=== PATIENT | male | born 1960 | race Caucasian/White ===

== ENCOUNTER 2016-12-15 15:57 | Inpatient (IN) | payer SELFPAY ==
[~2016-12-15] VITALS: Ht 165.1 cm; Wt 77.1 kg
[2016-12-15] MEDS ORDERED: SODIUM CHLORIDE 0.9% 1,000 ML IV ONE (16:47)
[2016-12-15 17:10] LABS: HEMATOCRIT. 41.3 % (42.0-52.0); HEMOGLOBIN. 13.3 g/dL (14.0-18.0); MEAN CORPUSCULAR HEMOGLOBIN 27.7 pg (28.0-32.0); MEAN CORPUSCULAR HGB CONC 32.1 g/dL (31.0-37.0); MEAN CORPUSCULAR VOLUME 86.2 fL (80.0-94.0); MEAN PLATELET VOLUME 9.8 fl (7.4-10.4); PLATELET 251 x1000/uL (130-400); RED BLOOD CELL COUNT 4.79 mill/uL (4.7-6.1); RED CELL DISTRIBUTION WIDTH 14.2 % (11.6-14.6); WHITE BLOOD COUNT 39.5 x1000/uL (4.5-11.0)
[2016-12-15 17:11] LABS: DIFFERENTIAL COMMENT 1
[2016-12-15 17:16] LABS: INR 1.1; PROTHROMBIN TIME 10.9 sec
[2016-12-15 17:23] LABS: ALANINE AMINOTRANSFERASE 52 IU/L (13-61); ALBUMIN 2.6 g/dL (3.4-5.0); ANION GAP 36; CALCIUM 9.3 mg/dL (8.5-10.1); CHLORIDE 89 mEq/L (98-107); INDEX HEMOLYSI 1 (1-3); INDEX ICTERIC 1 (1-4); INDEX LIPEMIC 1 (1-3); UREA NITROGEN BLOOD 30 mg/dL (7-21); eGFR > 60 mL/min (>60)
[2016-12-15 17:28] LABS: PLATELET ESTIMATE NORMAL
[2016-12-15 17:31] LABS: CARBON DIOXIDE 8 mEq/L (21-32)
[2016-12-15] MEDS ORDERED: CLONIDINE 0.1MG TABLET PO PRN (17:45)
[2016-12-15] MEDS ORDERED: DOCUSATE SODIUM 100MG CAPSULE PO PRN (17:45)
[2016-12-15] MEDS ORDERED: ACETAMINOPHEN 650MG SUPP PR PRN (17:45)
[2016-12-15] MEDS ORDERED: PIPERACILLIN SODIUM/TAZOBACTAM 4.5 G in DEXT 5% WATER 100 ML IV SCH ×2 (17:45→18:30)
[2016-12-15] MEDS ORDERED: INSULIN REGULAR (DRIP) 100 UNITS in SODIUM CHLORIDE 0.9% 100 ML IV ONE ×2 (17:45→18:15)
[2016-12-15] MEDS ORDERED: MAGNESIUM/ALUMINUM HYDROXIDE/SIMETHICONE 30ML UDC PO PRN (17:45)
[2016-12-15 17:53] LABS: CLARITY URINE CLEAR (CLEAR); COLOR URINE YELLOW (YELLOW); GLUCOSE URINE 3+ (NEGATIVE); KETONES URINE 4+ (NEGATIVE); LEUKOCYTE ESTERASE URINE NEGATIVE (NEGATIVE); NITRITE URINE NEGATIVE (NEGATIVE); OCCULT BLOOD URINE 2+ (NEGATIVE); PROTEIN URINE TRACE (NEGATIVE); UROBILINOGEN URINE 0.2 E.U./dL (0.2-1.0)
[2016-12-15 18:06] LABS: *AMPHETAMINES SCREEN URINE NEGATIVE (NEGATIVE); *BARBITURATES SCREEN URINE NEGATIVE (NEGATIVE); *BENZODIAZEPINES SCREEN URINE NEGATIVE (NEGATIVE); *COCAINE SCREEN URINE NEGATIVE (NEGATIVE); CANNABINOID URINE SCREEN NEGATIVE (NEGATIVE); ECSTASY MDMA SCREEN URINE NEGATIVE (NEGATIVE); METHADONE URINE SCREEN NEGATIVE (NEGATIVE); OPIATES URINE SCREEN NEGATIVE (NEGATIVE); PHENCYCLIDINE URINE SCREEN NEGATIVE (NEGATIVE)
[2016-12-15 18:07] LABS: BACTERIA URINE 2+; RBC URINE 0-2 /hpf (0-2); SQUAMOUS EPITHELIAL CELL URINE NONE SEEN /lpf (RARE/1+); WBC URINE 0-2 /hpf (0-2)
[2016-12-15 18:28] LABS: BETA HYDROXYBUTYRATE 13.7 mMol/L (0.0-0.3)
[2016-12-15 20:15] VITALS: BP 146/85
[2016-12-15 20:30] VITALS: BP 146/85
[2016-12-15 21:00] VITALS: BP 130/81
[2016-12-15] MEDS ORDERED: DEXTROSE 50% WATER 50ML SYRINGE IV PRN ×2 (21:00)
[2016-12-15] MEDS ORDERED: SODIUM CHLORIDE 0.45% 1,000 ML IV SCH (21:05)
[2016-12-15 21:30] LABS: BG BASE EXCESS -12.2 mmol/L (-2.0-2.0); BG CARBOXYHEMOGLOBIN 0.1 % (0.5-1.5); BG DEOXYHEMOGLOBIN 5.7 % (0.0-5.0); BG FRACTION INSPIRED OXYGEN 21; BG HCO3 ACT 11.5 mmol/L (22.0-26.0); BG METHEMOGLOBIN 0.4 % (0.0-1.5); BG OXYGEN SATURATION 94.3 % (92.0-98.5); BG OXYHEMOGLOBIN 93.8 % (94.0-97.0); BG PCO2 22.2 mmHg (35.0-45.0); BG PH 7.332 (7.350-7.450); BG PO2 70.7 mmHg (75.0-100.0); BG SAMPLE SITE RIGHT RADIAL; BG VENT MODE ROOM AIR
[2016-12-15] MEDS: BLOOD SUGAR DIAGNOSTIC STRIP TEST SCH ×3 (21:32→23:13)
[2016-12-15] MEDS: SODIUM CHLORIDE 0.9% INJ 3ML FLUSH IVF SCH (22:00)
[2016-12-15] MEDS ORDERED: VANCOMYCIN 1250MG in DEXTROSE 5% WATER 250ML IV NR (22:00)
[2016-12-15 22:12] VITALS: BP 137/83
[2016-12-15 23:00] VITALS: BP 146/86
[2016-12-15] MEDS ORDERED: SODIUM CHL 0.45% + KCL 20MEQ/L 1,000 ML IV SCH (23:00)
[2016-12-15] MEDS: HYDROCODONE/ACETAMINOPHEN 5/325MG TABLET PO PRN (23:12)
[2016-12-15] MEDS: INSULIN REGULAR (DRIP) 100 UNITS in SODIUM CHLORIDE 0.9% 100 ML IV SCH (23:13)
[2016-12-16] VITALS (28 sets, daily range): BP systolic 102–160; BP diastolic 65–110
[2016-12-16] MEDS: BLOOD SUGAR DIAGNOSTIC STRIP TEST SCH ×24 (00:23→23:14)
[2016-12-16] MEDS: HALOPERIDOL 1MG TABLET PO PRN (01:49)
[2016-12-16] MEDS ORDERED: METF500T4 PO (03:10)
[2016-12-16] MEDS: SODIUM CHLORIDE 0.9% INJ 3ML FLUSH IVF SCH (05:18)
[2016-12-16] MEDS: HYDROCODONE/ACETAMINOPHEN 5/325MG TABLET PO PRN (05:19)
[2016-12-16 05:54] LABS: HEMATOCRIT. 38.1 % (42.0-52.0); HEMOGLOBIN. 12.8 g/dL (14.0-18.0); MEAN CORPUSCULAR HEMOGLOBIN 28.1 pg (28.0-32.0); MEAN CORPUSCULAR HGB CONC 33.5 g/dL (31.0-37.0); MEAN CORPUSCULAR VOLUME 83.8 fL (80.0-94.0); MEAN PLATELET VOLUME 9.8 fl (7.4-10.4); PLATELET 241 x1000/uL (130-400); RED BLOOD CELL COUNT 4.55 mill/uL (4.7-6.1); RED CELL DISTRIBUTION WIDTH 14.2 % (11.6-14.6); WHITE BLOOD COUNT 33.3 x1000/uL (4.5-11.0)
[2016-12-16 06:07] LABS: DIFFERENTIAL COMMENT 1
[2016-12-16 06:09] LABS: ALANINE AMINOTRANSFERASE 40 IU/L (13-61); ANION GAP 20; CALCIUM 8.3 mg/dL (8.5-10.1); CARBON DIOXIDE 18 mEq/L (21-32); CHLORIDE 98 mEq/L (98-107); INDEX HEMOLYSI 1 (1-3); INDEX ICTERIC 1 (1-4); INDEX LIPEMIC 1 (1-3); MAGNESIUM 2.2 mg/dL (1.8-2.4); PHOSPHORUS 1.5 mg/dL (2.5-4.9); UREA NITROGEN BLOOD 25 mg/dL (7-21); eGFR > 60 mL/min (>60)
[2016-12-16] MEDS: INSULIN REGULAR (DRIP) 100 UNITS in SODIUM CHLORIDE 0.9% 100 ML IV SCH (06:20)
[2016-12-16] MEDS: MORPHINE SULFATE 2 MG/ML CPJ (NOT FOR IM USE) IV PRN (06:47)
[2016-12-16] MEDS ORDERED: VANCOMYCIN 1 G PREMIX 200 ML IV SCH (07:00)
[2016-12-16] MEDS: ONDANSETRON HCL 4MG/2ML VIAL IV PRN (07:11)
[2016-12-16] MEDS ORDERED: POTASSIUM PHOS,M-BASIC-D-BASIC 20 MMOL in DEXT 5% WATER 243.3333 ML IV NR (08:30)
[2016-12-16] MEDS: POTASSIUM CHLORIDE INJ 40 MEQ in SODIUM CHLORIDE 0.45% 1,000 ML IV SCH (09:02)
[2016-12-16] MEDS: ENOXAPARIN 40MG/0.4ML SYR SUBCUT SCH (09:02)
[2016-12-16 09:15] LABS: PLATELET ESTIMATE NORMAL
[2016-12-16 09:17] LABS: AMMONIA < 10 uMol/L (<32)
[2016-12-16] MEDS: ACETAMINOPHEN 325MG TABLET PO PRN ×2 (12:22→20:19)
[2016-12-16 12:35] LABS: BG BASE EXCESS -1.6 mmol/L (-2.0-2.0); BG CARBOXYHEMOGLOBIN 0.6 % (0.5-1.5); BG DEOXYHEMOGLOBIN 7.3 % (0.0-5.0); BG FRACTION INSPIRED OXYGEN 23; BG HCO3 ACT 21.9 mmol/L (22.0-26.0); BG METHEMOGLOBIN 0.3 % (0.0-1.5); BG OXYGEN SATURATION 92.6 % (92.0-98.5); BG OXYHEMOGLOBIN 91.8 % (94.0-97.0); BG PCO2 33.6 mmHg (35.0-45.0); BG PH 7.432 (7.350-7.450); BG PO2 58.8 mmHg (75.0-100.0); BG SAMPLE SITE LEFT RADIAL; BG TOTAL HEMOGLOBIN 13.7 g/dL (12.0-18.0); BG VENT MODE NASAL CANNULA
[2016-12-16] MEDS ORDERED: POTASSIUM CHLORIDE INJ 40 MEQ in DEXT 5% WATER 250 ML IV NR (13:00)
[2016-12-16] MEDS: VANCOMYCIN 750 MG PREMIX 150 ML IV SCH ×2 (13:23→21:50)
[2016-12-16] MEDS: PIPERACILLIN/TAZ 2.25G PREMIX 50 ML IV SCH ×2 (15:21→23:14)
[2016-12-16] MEDS: PANTOPRAZOLE SODIUM 40 MG/VIAL IV SCH (17:17)
[2016-12-16 19:05] LABS: AMYLASE 15 IU/L (25-115); ANION GAP 14; CALCIUM 8.7 mg/dL (8.5-10.1); CARBON DIOXIDE 23 mEq/L (21-32); CHLORIDE 102 mEq/L (98-107); CREATINE KINASE 394 IU/L (39-308); CREATINE KINASE MB FRACTION 8.7 ng/mL (0.5-3.6); INDEX HEMOLYSI 1 (1-3); INDEX ICTERIC 1 (1-4); INDEX LIPEMIC 1 (1-3); LIPASE 70 IU/L (73-393); MAGNESIUM 2.4 mg/dL (1.8-2.4); NT PRO B-TYPE NATRIURETIC PEP 19689 pg/mL (5-125); PHOSPHORUS 1.5 mg/dL (2.5-4.9); UREA NITROGEN BLOOD 23 mg/dL (7-21); eGFR > 60 mL/min (>60)
[2016-12-16] MEDS ORDERED: ZOLPIDEM TARTRATE 5MG TABLET PO PRN (20:15)
[2016-12-16] MEDS: GUAIFENESIN 200MG/10ML SUGAR FREE UDC PO PRN ×2 (20:19→21:50)
[2016-12-16] MEDS: QUETIAPINE FUMARATE 25MG TABLET PO SCH (20:20)
[2016-12-16] MEDS: ACETYLCYSTEINE 100MG/ML 10% VIAL 4ML INH SCH (20:24)
[2016-12-16] MEDS: ASPIRIN 81MG TABLET PO SCH (20:24)
[2016-12-16] MEDS: IPRATROPIUM/ALBUTEROL 0.5-3(2.5)MG/3ML NEB HHN SCH (20:24)
[2016-12-16] MEDS ORDERED: POTASSIUM PHOS,M-BASIC-D-BASIC 10 MMOL in DEXT 5% WATER 246.6667 ML IV NR (22:00)
[2016-12-17] VITALS (24 sets, daily range): BP systolic 91–122; BP diastolic 52–101
[2016-12-17] MEDS: BLOOD SUGAR DIAGNOSTIC STRIP TEST SCH ×24 (00:28→23:00)
[2016-12-17] MEDS: INSULIN REGULAR (DRIP) 100 UNITS in SODIUM CHLORIDE 0.9% 100 ML IV SCH ×2 (02:00→18:36)
[2016-12-17] MEDS: ACETYLCYSTEINE 100MG/ML 10% VIAL 4ML INH SCH ×6 (02:06→20:26)
[2016-12-17] MEDS: IPRATROPIUM/ALBUTEROL 0.5-3(2.5)MG/3ML NEB HHN SCH ×4 (02:06→20:26)
[2016-12-17] MEDS: POTASSIUM CHLORIDE INJ 40 MEQ in SODIUM CHLORIDE 0.45% 1,000 ML IV SCH ×3 (03:06→21:16)
[2016-12-17] MEDS: ACYCLOVIR INJ 750 MG in DEXT 5% WATER 100 ML IV SCH ×3 (04:10→20:13)
[2016-12-17] MEDS: ACETAMINOPHEN 650MG/20.3ML UDC GT PRN (04:10)
[2016-12-17 04:18] LABS: HEMATOCRIT. 34.8 % (42.0-52.0); HEMOGLOBIN. 11.8 g/dL (14.0-18.0); MEAN CORPUSCULAR HEMOGLOBIN 27.8 pg (28.0-32.0); MEAN CORPUSCULAR VOLUME 81.8 fL (80.0-94.0); MEAN PLATELET VOLUME 9.8 fl (7.4-10.4); PLATELET 231 x1000/uL (130-400); RED BLOOD CELL COUNT 4.25 mill/uL (4.7-6.1); RED CELL DISTRIBUTION WIDTH 14.4 % (11.6-14.6); WHITE BLOOD COUNT 21.2 x1000/uL (4.5-11.0)
[2016-12-17] MEDS: MORPHINE SULFATE 2 MG/ML CPJ (NOT FOR IM USE) IV PRN (04:19)
[2016-12-17] MEDS: ONDANSETRON HCL 4MG/2ML VIAL IV PRN (04:19)
[2016-12-17 04:21] LABS: DIFFERENTIAL COMMENT 1
[2016-12-17 04:33] LABS: ALANINE AMINOTRANSFERASE 30 IU/L (13-61); ALBUMIN 1.7 g/dL (3.4-5.0); ANION GAP 17; CALCIUM 8.8 mg/dL (8.5-10.1); CARBON DIOXIDE 21 mEq/L (21-32); CHLORIDE 103 mEq/L (98-107); INDEX HEMOLYSI 1 (1-3); INDEX ICTERIC 1 (1-4); INDEX LIPEMIC 1 (1-3); MAGNESIUM 2.4 mg/dL (1.8-2.4); PHOSPHORUS 1.7 mg/dL (2.5-4.9); UREA NITROGEN BLOOD 25 mg/dL (7-21); VANCOMYCIN TROUGH 25.8 ug/mL (5.0-10.0); eGFR 45 mL/min (>60)
[2016-12-17] MEDS: VANCOMYCIN 750 MG PREMIX 150 ML IV SCH (05:42)
[2016-12-17] MEDS: PIPERACILLIN/TAZ 2.25G PREMIX 50 ML IV SCH ×3 (06:06→23:35)
[2016-12-17 07:17] LABS: PLATELET ESTIMATE NORMAL
[2016-12-17] MEDS: ASPIRIN 81MG TABLET PO SCH (09:09)
[2016-12-17] MEDS: PANTOPRAZOLE SODIUM 40 MG/VIAL IV SCH (09:09)
[2016-12-17] MEDS: CLOPIDOGREL 75MG TABLET PO SCH (09:10)
[2016-12-17] MEDS: ENOXAPARIN 40MG/0.4ML SYR SUBCUT SCH (09:10)
[2016-12-17] MEDS: QUETIAPINE FUMARATE 25MG TABLET PO SCH ×2 (09:10→21:16)
[2016-12-17] MEDS ORDERED: POTASSIUM PHOS,M-BASIC-D-BASIC 30 MMOL in SODIUM CHLORIDE 0.9% 500 ML IV NR (11:30)
[2016-12-17] MEDS: IPRATROPIUM/ALBUTEROL 0.5-3(2.5)MG/3ML NEB INH PRN (12:06)
[2016-12-17 15:42] LABS: CLARITY URINE CLOUDY (CLEAR); COLOR URINE YELLOW (YELLOW); GLUCOSE URINE NEGATIVE (NEGATIVE); KETONES URINE NEGATIVE (NEGATIVE); LEUKOCYTE ESTERASE URINE TRACE (NEGATIVE); NITRITE URINE NEGATIVE (NEGATIVE); OCCULT BLOOD URINE 3+ (NEGATIVE); PH URINE 5.5 (4.5-8.0); PROTEIN URINE 1+ (NEGATIVE); SPECIFIC GRAVITY URINE 1.013 (1.005-1.030)
[2016-12-17 15:54] LABS: CREATININE URINE RANDOM 51.8 mg/dL
[2016-12-17 16:30] LABS: RBC URINE 25-50 /hpf (0-2); SQUAMOUS EPITHELIAL CELL URINE NONE SEEN /lpf (RARE/1+); WBC URINE 0-2 /hpf (0-2)
[2016-12-17 16:31] LABS: BACTERIA URINE 2+
[2016-12-18] VITALS (22 sets, daily range): BP systolic 104–152; BP diastolic 19–80
[2016-12-18] MEDS: BLOOD SUGAR DIAGNOSTIC STRIP TEST SCH ×12 (00:01→21:19)
[2016-12-18] MEDS: IPRATROPIUM/ALBUTEROL 0.5-3(2.5)MG/3ML NEB HHN SCH ×4 (00:22→21:10)
[2016-12-18] MEDS: ACETYLCYSTEINE 100MG/ML 10% VIAL 4ML INH SCH ×6 (00:22→21:00)
[2016-12-18] MEDS: ACYCLOVIR INJ 750 MG in DEXT 5% WATER 100 ML IV SCH ×3 (03:04→22:22)
[2016-12-18] MEDS: GUAIFENESIN 200MG/10ML SUGAR FREE UDC PO PRN (03:51)
[2016-12-18] MEDS: IPRATROPIUM/ALBUTEROL 0.5-3(2.5)MG/3ML NEB INH PRN (04:29)
[2016-12-18 05:40] LABS: DIFFERENTIAL COMMENT 1; HEMATOCRIT. 32.7 % (42.0-52.0); HEMOGLOBIN. 10.9 g/dL (14.0-18.0); MEAN CORPUSCULAR HEMOGLOBIN 27.4 pg (28.0-32.0); MEAN CORPUSCULAR HGB CONC 33.5 g/dL (31.0-37.0); MEAN CORPUSCULAR VOLUME 81.9 fL (80.0-94.0); MEAN PLATELET VOLUME 9.6 fl (7.4-10.4); PLATELET 265 x1000/uL (130-400); RED BLOOD CELL COUNT 3.99 mill/uL (4.7-6.1); RED CELL DISTRIBUTION WIDTH 14.6 % (11.6-14.6); WHITE BLOOD COUNT 20.1 x1000/uL (4.5-11.0)
[2016-12-18 06:11] LABS: ALANINE AMINOTRANSFERASE 24 IU/L (13-61); ALBUMIN 1.4 g/dL (3.4-5.0); ANION GAP 16; CALCIUM 8.2 mg/dL (8.5-10.1); CARBON DIOXIDE 20 mEq/L (21-32); CHLORIDE 104 mEq/L (98-107); INDEX HEMOLYSI 1 (1-3); INDEX ICTERIC 1 (1-4); INDEX LIPEMIC 1 (1-3); MAGNESIUM 2.5 mg/dL (1.8-2.4); PHOSPHORUS 2.9 mg/dL (2.5-4.9); UREA NITROGEN BLOOD 33 mg/dL (7-21); eGFR 31 mL/min (>60)
[2016-12-18] MEDS: PIPERACILLIN/TAZ 2.25G PREMIX 50 ML IV SCH (06:11)
[2016-12-18] MEDS ORDERED: DEXTROSE 50% WATER 50ML SYRINGE IV PRN (08:00)
[2016-12-18] MEDS: INSULIN LISPRO 100 UNITS/ML SUBCUT SCH ×5 (08:14→21:25)
[2016-12-18] MEDS: CLOPIDOGREL 75MG TABLET PO SCH (08:14)
[2016-12-18] MEDS: PANTOPRAZOLE SODIUM 40 MG/VIAL IV SCH (08:14)
[2016-12-18] MEDS: ENOXAPARIN 40MG/0.4ML SYR SUBCUT SCH (08:14)
[2016-12-18] MEDS: ASPIRIN 81MG TABLET PO SCH (08:14)
[2016-12-18 08:48] LABS: PLATELET ESTIMATE NORMAL
[2016-12-18] MEDS ORDERED: INSULIN DETEMIR UD 100 UNITS/ML SYR SUBCUT SCH (10:00)
[2016-12-18] MEDS: CEFAZOLIN 2,000 MG in DEXT 5% WATER 100 ML IV SCH ×2 (10:43→23:41)
[2016-12-18 13:03] LABS: CLARITY URINE CLOUDY (CLEAR); COLOR URINE YELLOW (YELLOW); GLUCOSE URINE 1+ (NEGATIVE); KETONES URINE TRACE (NEGATIVE); LEUKOCYTE ESTERASE URINE 1+ (NEGATIVE); NITRITE URINE NEGATIVE (NEGATIVE); OCCULT BLOOD URINE 3+ (NEGATIVE); PH URINE 5.5 (4.5-8.0); PROTEIN URINE 1+ (NEGATIVE); SPECIFIC GRAVITY URINE 1.015 (1.005-1.030)
[2016-12-18 13:22] LABS: BACTERIA URINE 3+; RBC URINE TNTC /hpf (0-2); SQUAMOUS EPITHELIAL CELL URINE RARE /lpf (RARE/1+); WBC URINE 0-2 /hpf (0-2)
[2016-12-18] MEDS: MORPHINE SULFATE 2 MG/ML CPJ (NOT FOR IM USE) IV PRN (14:26)
[2016-12-18] MEDS ORDERED: QUETIAPINE FUMARATE 25MG TABLET PO SCH (21:00)
[2016-12-18] MEDS: QUETIAPINE FUMARATE 25MG TABLET PO SCH (21:20)
[2016-12-19] VITALS (15 sets, daily range): BP systolic 108–152; BP diastolic 51–87
[2016-12-19] MEDS: IPRATROPIUM/ALBUTEROL 0.5-3(2.5)MG/3ML NEB HHN SCH ×4 (00:35→19:46)
[2016-12-19] MEDS: ACETYLCYSTEINE 100MG/ML 10% VIAL 4ML INH SCH ×2 (00:35→19:47)
[2016-12-19] MEDS: HYDROCODONE/ACETAMINOPHEN 5/325MG TABLET PO PRN (00:41)
[2016-12-19] MEDS: ACYCLOVIR INJ 750 MG in DEXT 5% WATER 100 ML IV SCH ×3 (03:04→19:59)
[2016-12-19] MEDS: HALOPERIDOL 1MG TABLET PO PRN (03:14)
[2016-12-19] MEDS: AMIODARONE HCL 900 MG in DEXT 5% WATER 500 ML IV PRN (05:55)
[2016-12-19] MEDS: BLOOD SUGAR DIAGNOSTIC STRIP TEST SCH ×4 (06:10→21:31)
[2016-12-19] MEDS: INSULIN LISPRO 100 UNITS/ML SUBCUT SCH ×4 (06:23→21:40)
[2016-12-19 06:34] LABS: HEMATOCRIT. 35.2 % (42.0-52.0); HEMOGLOBIN. 11.6 g/dL (14.0-18.0); MEAN CORPUSCULAR HEMOGLOBIN 27.7 pg (28.0-32.0); MEAN CORPUSCULAR VOLUME 83.8 fL (80.0-94.0); MEAN PLATELET VOLUME 9.2 fl (7.4-10.4); PLATELET 289 x1000/uL (130-400); RED BLOOD CELL COUNT 4.19 mill/uL (4.7-6.1); RED CELL DISTRIBUTION WIDTH 15.2 % (11.6-14.6); WHITE BLOOD COUNT 20.3 x1000/uL (4.5-11.0)
[2016-12-19 06:40] LABS: DIFFERENTIAL COMMENT 1
[2016-12-19 07:52] LABS: CALCIUM 8.6 mg/dL (8.5-10.1); MAGNESIUM 2.9 mg/dL (1.8-2.4); PHOSPHORUS 3.9 mg/dL (2.5-4.9)
[2016-12-19] MEDS: CLOPIDOGREL 75MG TABLET PO SCH (08:44)
[2016-12-19] MEDS: ASPIRIN 81MG TABLET PO SCH (08:44)
[2016-12-19] MEDS: ENOXAPARIN 40MG/0.4ML SYR SUBCUT SCH (08:44)
[2016-12-19] MEDS: PANTOPRAZOLE SODIUM 40 MG/VIAL IV SCH (08:44)
[2016-12-19 09:24] LABS: PLATELET ESTIMATE NORMAL
[2016-12-19] MEDS ORDERED: INSULIN DETEMIR UD 100 UNITS/ML SYR SUBCUT SCH (10:00)
[2016-12-19] MEDS: CEFAZOLIN 2,000 MG in DEXT 5% WATER 100 ML IV SCH ×2 (11:29→22:25)
[2016-12-19 16:09] LABS: BG BASE EXCESS -0.9 mmol/L (-2.0-2.0); BG CARBOXYHEMOGLOBIN 0.4 % (0.5-1.5); BG FRACTION INSPIRED OXYGEN 28; BG HCO3 ACT 22.2 mmol/L (22.0-26.0); BG METHEMOGLOBIN 0.3 % (0.0-1.5); BG OXYHEMOGLOBIN 95.3 % (94.0-97.0); BG PCO2 32.2 mmHg (35.0-45.0); BG PH 7.457 (7.350-7.450); BG PO2 78.1 mmHg (75.0-100.0); BG SAMPLE SITE RIGHT RADIAL; BG TOTAL HEMOGLOBIN 12.4 g/dL (12.0-18.0); BG VENT MODE NASAL CANNULA
[2016-12-19] MEDS: GLIPIZIDE 5MG TABLET PO SCH (17:17)
[2016-12-19] MEDS: SODIUM CHLORIDE 0.9% 1,000 ML IV SCH (18:18)
[2016-12-19] MEDS: QUETIAPINE FUMARATE 25MG TABLET PO SCH (21:39)
[2016-12-19] MEDS: INSULIN DETEMIR UD 100 UNITS/ML SYR SUBCUT SCH (21:40)
[2016-12-19 22:45] LABS: CLARITY URINE TURBID (CLEAR); COLOR URINE YELLOW (YELLOW); GLUCOSE URINE 1+ (NEGATIVE); KETONES URINE NEGATIVE (NEGATIVE); LEUKOCYTE ESTERASE URINE 2+ (NEGATIVE); NITRITE URINE NEGATIVE (NEGATIVE); OCCULT BLOOD URINE 3+ (NEGATIVE); PROTEIN URINE 1+ (NEGATIVE); SPECIFIC GRAVITY URINE 1.013 (1.005-1.030); UROBILINOGEN URINE 0.2 E.U./dL (0.2-1.0)
[2016-12-19 23:06] LABS: CREATININE URINE RANDOM 54.7 mg/dL
[2016-12-19 23:15] LABS: RBC URINE TNTC /hpf (0-2)
[2016-12-19 23:16] LABS: BACTERIA URINE 2+; WBC URINE 15-25 /hpf (0-2)
[2016-12-19 23:19] LABS: MUCUS URINE TRACE /lpf (NONE/TRACE); SQUAMOUS EPITHELIAL CELL URINE FEW /lpf (RARE/1+)
[2016-12-20] VITALS (12 sets, daily range): BP systolic 120–168; BP diastolic 53–92
[2016-12-20] MEDS: IPRATROPIUM/ALBUTEROL 0.5-3(2.5)MG/3ML NEB HHN SCH ×5 (01:55→23:38)
[2016-12-20] MEDS: ACETYLCYSTEINE 100MG/ML 10% VIAL 4ML INH SCH ×2 (01:55→07:12)
[2016-12-20] MEDS: ACYCLOVIR INJ 750 MG in DEXT 5% WATER 100 ML IV SCH ×2 (03:13→11:42)
[2016-12-20] MEDS: AMIODARONE HCL 900 MG in DEXT 5% WATER 500 ML IV PRN ×2 (05:29→17:21)
[2016-12-20] MEDS: GLIPIZIDE 5MG TABLET PO SCH ×2 (06:28→16:24)
[2016-12-20] MEDS: FAMOTIDINE 20MG TABLET PO SCH (06:28)
[2016-12-20] MEDS: SODIUM CHLORIDE 0.9% 1,000 ML IV SCH (06:29)
[2016-12-20] MEDS: BLOOD SUGAR DIAGNOSTIC STRIP TEST SCH ×4 (06:30→21:00)
[2016-12-20 07:04] LABS: HEMATOCRIT. 33.6 % (42.0-52.0); HEMOGLOBIN. 11.1 g/dL (14.0-18.0); MEAN CORPUSCULAR HEMOGLOBIN 27.4 pg (28.0-32.0); MEAN CORPUSCULAR HGB CONC 32.9 g/dL (31.0-37.0); MEAN CORPUSCULAR VOLUME 83.2 fL (80.0-94.0); MEAN PLATELET VOLUME 8.9 fl (7.4-10.4); PLATELET 317 x1000/uL (130-400); RED BLOOD CELL COUNT 4.04 mill/uL (4.7-6.1); RED CELL DISTRIBUTION WIDTH 15.1 % (11.6-14.6)
[2016-12-20 07:07] LABS: DIFFERENTIAL COMMENT 1
[2016-12-20 07:45] LABS: ALBUMIN 1.5 g/dL (3.4-5.0); CHLORIDE 105 mEq/L (98-107); INDEX HEMOLYSI 1 (1-3); INDEX ICTERIC 1 (1-4); INDEX LIPEMIC 1 (1-3)
[2016-12-20 07:51] LABS: ALANINE AMINOTRANSFERASE 11 IU/L (13-61); ANION GAP 19; CALCIUM 8.2 mg/dL (8.5-10.1); CARBON DIOXIDE 18 mEq/L (21-32); PHOSPHORUS 3.5 mg/dL (2.5-4.9); UREA NITROGEN BLOOD 51 mg/dL (7-21); eGFR 30 mL/min (>60)
[2016-12-20] MEDS: INSULIN LISPRO 100 UNITS/ML SUBCUT SCH ×4 (07:54→21:23)
[2016-12-20] MEDS: ENOXAPARIN 40MG/0.4ML SYR SUBCUT SCH (08:00)
[2016-12-20] MEDS: CLOPIDOGREL 75MG TABLET PO SCH (08:00)
[2016-12-20] MEDS: ASPIRIN 81MG TABLET PO SCH (08:00)
[2016-12-20 08:01] LABS: PLATELET ESTIMATE NORMAL
[2016-12-20] MEDS: INSULIN DETEMIR UD 100 UNITS/ML SYR SUBCUT SCH ×2 (10:19→21:24)
[2016-12-20] MEDS: CEFAZOLIN 2,000 MG in DEXT 5% WATER 100 ML IV SCH ×2 (10:19→23:04)
[2016-12-20] MEDS ORDERED: FUROSEMIDE 40MG/4ML VIAL IVP NR (17:15)
[2016-12-20] MEDS: MORPHINE SULFATE 2 MG/ML CPJ (NOT FOR IM USE) IV PRN (17:26)
[2016-12-20 20:55] LABS: BG BASE EXCESS -4.3 mmol/L (-2.0-2.0); BG BILEVEL POS AIRWAY PRESSURE 15/5; BG CARBOXYHEMOGLOBIN 0.3 % (0.5-1.5); BG DEOXYHEMOGLOBIN 0.3 % (0.0-5.0); BG FRACTION INSPIRED OXYGEN 100; BG HCO3 ACT 20.5 mmol/L (22.0-26.0); BG METHEMOGLOBIN 0.4 % (0.0-1.5); BG OXYGEN SATURATION 99.7 % (92.0-98.5); BG PH 7.362 (7.350-7.450); BG PO2 378.2 mmHg (75.0-100.0); BG SAMPLE SITE RIGHT BRACHIAL; BG TOTAL HEMOGLOBIN 14.2 g/dL (12.0-18.0); BG VENT MODE MASK - BIPAP; BG VENT RATE 16 set
[2016-12-20] MEDS: ACYCLOVIR IV SCH (21:03)
[2016-12-20] MEDS: WATER IV SCH (21:03)
[2016-12-20] MEDS: DEXTROSE 5% IV SCH (21:03)
[2016-12-20] MEDS: QUETIAPINE FUMARATE 25MG TABLET PO SCH (21:22)
[2016-12-20] MEDS ORDERED: LORAZEPAM 2MG/ML CPJ IV PRN (21:30)
[2016-12-21] VITALS (22 sets, daily range): BP systolic 93–148; BP diastolic 48–90
[2016-12-21] MEDS: IPRATROPIUM/ALBUTEROL 0.5-3(2.5)MG/3ML NEB HHN SCH ×4 (04:30→16:00)
[2016-12-21] MEDS: AMIODARONE HCL 900 MG in DEXT 5% WATER 500 ML IV PRN ×3 (05:32→22:00)
[2016-12-21] MEDS: GLIPIZIDE 5MG TABLET PO SCH ×2 (06:28→17:05)
[2016-12-21] MEDS: FAMOTIDINE 20MG TABLET PO SCH (06:28)
[2016-12-21 06:50] LABS: HEMATOCRIT. 32.3 % (42.0-52.0); HEMOGLOBIN. 10.6 g/dL (14.0-18.0); MEAN CORPUSCULAR HEMOGLOBIN 27.4 pg (28.0-32.0); MEAN CORPUSCULAR HGB CONC 32.8 g/dL (31.0-37.0); MEAN CORPUSCULAR VOLUME 83.4 fL (80.0-94.0); MEAN PLATELET VOLUME 8.6 fl (7.4-10.4); PLATELET 344 x1000/uL (130-400); RED BLOOD CELL COUNT 3.88 mill/uL (4.7-6.1); RED CELL DISTRIBUTION WIDTH 15.2 % (11.6-14.6)
[2016-12-21] MEDS: BLOOD SUGAR DIAGNOSTIC STRIP TEST SCH ×4 (06:50→21:00)
[2016-12-21 07:04] LABS: DIFFERENTIAL COMMENT 1
[2016-12-21 07:14] LABS: ALANINE AMINOTRANSFERASE 10 IU/L (13-61); ALBUMIN 1.3 g/dL (3.4-5.0); ANION GAP 17; CALCIUM 7.9 mg/dL (8.5-10.1); CARBON DIOXIDE 19 mEq/L (21-32); CHLORIDE 108 mEq/L (98-107); INDEX HEMOLYSI 1 (1-3); INDEX ICTERIC 1 (1-4); INDEX LIPEMIC 1 (1-3); MAGNESIUM 2.8 mg/dL (1.8-2.4); PHOSPHORUS 4.1 mg/dL (2.5-4.9); UREA NITROGEN BLOOD 49 mg/dL (7-21); eGFR 31 mL/min (>60)
[2016-12-21] MEDS: INSULIN LISPRO 100 UNITS/ML SUBCUT SCH ×4 (07:58→22:19)
[2016-12-21] MEDS: ASPIRIN 81MG TABLET PO SCH (08:01)
[2016-12-21] MEDS: WATER IV SCH ×2 (08:01→21:58)
[2016-12-21] MEDS: DEXTROSE 5% IV SCH ×2 (08:01→21:58)
[2016-12-21] MEDS: ACYCLOVIR IV SCH ×2 (08:01→21:58)
[2016-12-21] MEDS: CLOPIDOGREL 75MG TABLET PO SCH (08:01)
[2016-12-21] MEDS: ENOXAPARIN 40MG/0.4ML SYR SUBCUT SCH (08:01)
[2016-12-21 11:07] LABS: BG BASE EXCESS -2.6 mmol/L (-2.0-2.0); BG BILEVEL POS AIRWAY PRESSURE 15/5; BG CARBOXYHEMOGLOBIN 0.3 % (0.5-1.5); BG DEOXYHEMOGLOBIN 2.7 % (0.0-5.0); BG FRACTION INSPIRED OXYGEN 30; BG HCO3 ACT 19.6 mmol/L (22.0-26.0); BG METHEMOGLOBIN 0.5 % (0.0-1.5); BG OXYGEN SATURATION 97.3 % (92.0-98.5); BG OXYHEMOGLOBIN 96.5 % (94.0-97.0); BG PCO2 26.6 mmHg (35.0-45.0); BG PH 7.485 (7.350-7.450); BG PO2 96.8 mmHg (75.0-100.0); BG SAMPLE SITE RIGHT RADIAL; BG TOTAL HEMOGLOBIN 11.9 g/dL (12.0-18.0); BG VENT MODE MASK - BIPAP; BG VENT RATE 16 set
[2016-12-21 11:42] LABS: PLATELET ESTIMATE NORMAL
[2016-12-21] MEDS: INSULIN DETEMIR UD 100 UNITS/ML SYR SUBCUT SCH ×2 (11:58→22:20)
[2016-12-21] MEDS: CEFAZOLIN 2,000 MG in DEXT 5% WATER 100 ML IV SCH (11:59)
[2016-12-21] MEDS ORDERED: EPINEPHRINE 0.1MG/ML (1:10,000) 10ML SYR ONE (14:19)
[2016-12-21] MEDS ORDERED: SODIUM BICARBONATE 7.5% 0.9 MEQ/ML 50ML SYR IV ONE (14:19)
[2016-12-21] MEDS ORDERED: CALCIUM CHLORIDE 1GM/10ML SYR IV ONE (14:19)
[2016-12-21 20:44] LABS: HEMATOCRIT. 34.5 % (42.0-52.0); HEMOGLOBIN. 11.1 g/dL (14.0-18.0); MEAN CORPUSCULAR HEMOGLOBIN 27.1 pg (28.0-32.0); MEAN CORPUSCULAR VOLUME 84.4 fL (80.0-94.0); MEAN PLATELET VOLUME 8.6 fl (7.4-10.4); PLATELET 417 x1000/uL (130-400); RED BLOOD CELL COUNT 4.09 mill/uL (4.7-6.1); RED CELL DISTRIBUTION WIDTH 15.6 % (11.6-14.6); WHITE BLOOD COUNT 37.9 x1000/uL (4.5-11.0)
[2016-12-21 20:46] LABS: DIFFERENTIAL COMMENT 1
[2016-12-21 20:58] LABS: ALANINE AMINOTRANSFERASE 18 IU/L (13-61); ALBUMIN 1.6 g/dL (3.4-5.0); ANION GAP 18; CALCIUM 9.4 mg/dL (8.5-10.1); CARBON DIOXIDE 21 mEq/L (21-32); CHLORIDE 107 mEq/L (98-107); HDL CHOLESTEROL 18 mg/dL (40-59); INDEX HEMOLYSI 1 (1-3); INDEX ICTERIC 1 (1-4); INDEX LIPEMIC 1 (1-3); LDL CHOLESTEROL 128 mg/dL (5-100); TRIGLYCERIDE 233 mg/dL (0-150); UREA NITROGEN BLOOD 57 mg/dL (7-21); eGFR 25 mL/min (>60)
[2016-12-21 21:05] LABS: PLATELET ESTIMATE NORMAL
[2016-12-21 21:13] LABS: BG BASE EXCESS -7.5 mmol/L (-2.0-2.0); BG CARBOXYHEMOGLOBIN 0.3 % (0.5-1.5); BG DEOXYHEMOGLOBIN 1.2 % (0.0-5.0); BG FRACTION INSPIRED OXYGEN 100; BG METHEMOGLOBIN 0.4 % (0.0-1.5); BG OXYGEN SATURATION 98.8 % (92.0-98.5); BG OXYHEMOGLOBIN 98.1 % (94.0-97.0); BG PCO2 56.1 mmHg (35.0-45.0); BG PH 7.192 (7.350-7.450); BG PO2 181.7 mmHg (75.0-100.0); BG SAMPLE SITE LEFT BRACHIAL; BG TIDAL VOLUME(mL) 450 mL; BG TOTAL HEMOGLOBIN 12.3 g/dL (12.0-18.0); BG VENT MODE VENT - A/C; BG VENT RATE 16 set
[2016-12-21] MEDS ORDERED: IPRATROPIUM/ALBUTEROL 0.5-3(2.5)MG/3ML NEB HHN PRN (21:30)
[2016-12-21] MEDS ORDERED: SODIUM BICARBONATE 8.4% 1 MEQ/ML 50ML SYR IV NR (21:33)
[2016-12-21] MEDS: DEXT 5%/0.45% NACL 1000ML 1,000 ML IV SCH (22:00)
[2016-12-21] MEDS: FENTANYL CITRATE/PF 500 MCG in SODIUM CHLORIDE 0.9% 40 ML IV PRN (22:36)
[2016-12-21] MEDS: MIDAZOLAM HCL 50 MG in DEXTROSE 5% WATER 40 ML IV PRN (22:37)
[2016-12-21] MEDS: QUETIAPINE FUMARATE 25MG TABLET PO SCH (22:49)
[2016-12-21] MEDS: PIPERACILLIN/TAZ 2.25G PREMIX 50 ML IV SCH (23:49)
[2016-12-22] VITALS (93 sets, daily range): BP systolic 85–120; BP diastolic 42–66
[2016-12-22] MEDS ORDERED: VANCOMYCIN 1250MG in DEXTROSE 5% WATER 250ML IV NR ×2
[2016-12-22] MEDS: IPRATROPIUM/ALBUTEROL 0.5-3(2.5)MG/3ML NEB HHN SCH ×6 (00:20→20:21)
[2016-12-22] MEDS: BLOOD SUGAR DIAGNOSTIC STRIP TEST SCH ×4 (00:53→17:06)
[2016-12-22] MEDS ORDERED: SODIUM CHLORIDE 0.9% 500 ML IV ONE (01:00)
[2016-12-22] MEDS ORDERED: NOREPINEPHRINE 16 MG in DEXT 5% WATER 234 ML IV PRN (01:00)
[2016-12-22] MEDS: INSULIN LISPRO 100 UNITS/ML SUBCUT SCH ×4 (01:01→17:06)
[2016-12-22] MEDS: FENTANYL CITRATE/PF 500 MCG in SODIUM CHLORIDE 0.9% 40 ML IV PRN ×2 (03:28→07:25)
[2016-12-22] MEDS: MIDAZOLAM HCL 50 MG in DEXTROSE 5% WATER 40 ML IV PRN ×2 (04:25→09:14)
[2016-12-22] MEDS: DEXT 5%/0.45% NACL 1000ML 1,000 ML IV SCH ×2 (05:55→17:11)
[2016-12-22] MEDS: PIPERACILLIN/TAZ 2.25G PREMIX 50 ML IV SCH ×3 (05:55→23:46)
[2016-12-22 06:11] LABS: HEMATOCRIT. 32.1 % (42.0-52.0); HEMOGLOBIN. 10.3 g/dL (14.0-18.0); MEAN CORPUSCULAR HEMOGLOBIN 27.3 pg (28.0-32.0); MEAN CORPUSCULAR HGB CONC 32.2 g/dL (31.0-37.0); MEAN CORPUSCULAR VOLUME 84.9 fL (80.0-94.0); MEAN PLATELET VOLUME 8.8 fl (7.4-10.4); PLATELET 348 x1000/uL (130-400); RED BLOOD CELL COUNT 3.78 mill/uL (4.7-6.1); RED CELL DISTRIBUTION WIDTH 15.2 % (11.6-14.6); WHITE BLOOD COUNT 28.3 x1000/uL (4.5-11.0)
[2016-12-22 06:16] LABS: DIFFERENTIAL COMMENT 1
[2016-12-22 07:07] LABS: BG BASE EXCESS -4.4 mmol/L (-2.0-2.0); BG CARBOXYHEMOGLOBIN 0.3 % (0.5-1.5); BG DEOXYHEMOGLOBIN 0.5 % (0.0-5.0); BG HCO3 ACT 22.3 mmol/L (22.0-26.0); BG METHEMOGLOBIN 0.3 % (0.0-1.5); BG OXYGEN SATURATION 99.5 % (92.0-98.5); BG OXYHEMOGLOBIN 98.9 % (94.0-97.0); BG PCO2 47.7 mmHg (35.0-45.0); BG PH 7.288 (7.350-7.450); BG PO2 366.2 mmHg (75.0-100.0); BG SAMPLE SITE RIGHT RADIAL; BG TIDAL VOLUME(mL) 450 mL; BG TOTAL HEMOGLOBIN 11.6 g/dL (12.0-18.0); BG VENT MODE VENT - A/C; BG VENT RATE 16 set
[2016-12-22 07:12] LABS: ALANINE AMINOTRANSFERASE 14 IU/L (13-61); ALBUMIN 1.4 g/dL (3.4-5.0); ANION GAP 14; CALCIUM 8.1 mg/dL (8.5-10.1); CARBON DIOXIDE 23 mEq/L (21-32); CHLORIDE 107 mEq/L (98-107); INDEX HEMOLYSI 1 (1-3); INDEX ICTERIC 1 (1-4); INDEX LIPEMIC 1 (1-3); MAGNESIUM 3.2 mg/dL (1.8-2.4); PHOSPHORUS 7.1 mg/dL (2.5-4.9); UREA NITROGEN BLOOD 63 mg/dL (7-21)
[2016-12-22 07:13] LABS: eGFR 24 mL/min (>60)
[2016-12-22] MEDS: GLIPIZIDE 5MG TABLET PO SCH ×2 (07:50→16:27)
[2016-12-22] MEDS ORDERED: ASPIRIN 325MG EC TABLET PO SCH (09:00)
[2016-12-22] MEDS: ENOXAPARIN 40MG/0.4ML SYR SUBCUT SCH (09:00)
[2016-12-22] MEDS: ASPIRIN 81MG TABLET PO SCH (09:18)
[2016-12-22] MEDS: FAMOTIDINE 20MG TABLET PO SCH (09:18)
[2016-12-22] MEDS: CLOPIDOGREL 75MG TABLET PO SCH (09:18)
[2016-12-22] MEDS: WATER IV SCH ×2 (09:19→21:12)
[2016-12-22] MEDS: ACYCLOVIR IV SCH ×2 (09:19→21:12)
[2016-12-22] MEDS: DEXTROSE 5% IV SCH ×2 (09:19→21:12)
[2016-12-22] MEDS: INSULIN DETEMIR UD 100 UNITS/ML SYR SUBCUT SCH ×2 (09:27→21:22)
[2016-12-22 09:41] LABS: AMMONIA 67 uMol/L (<32)
[2016-12-22 10:04] LABS: NUCLEATED RED BLOOD CELLS 1 /100 WBC; PLATELET ESTIMATE NORMAL
[2016-12-22] MEDS: LACTULOSE 20G/30ML UDC PO SCH ×2 (11:06→21:12)
[2016-12-22] MEDS: ENOXAPARIN 80MG/0.8ML SYR SUBCUT SCH (11:06)
[2016-12-22 12:33] LABS: BG BASE EXCESS -3.7 mmol/L (-2.0-2.0); BG CARBOXYHEMOGLOBIN 0.3 % (0.5-1.5); BG HCO3 ACT 21.2 mmol/L (22.0-26.0); BG METHEMOGLOBIN 0.2 % (0.0-1.5); BG OXYHEMOGLOBIN 98.5 % (94.0-97.0); BG PH 7.365 (7.350-7.450); BG PO2 177.8 mmHg (75.0-100.0); BG SAMPLE SITE RIGHT RADIAL; BG TIDAL VOLUME(mL) 500 mL; BG VENT MODE VENT - A/C; BG VENT RATE 16 set
[2016-12-22] MEDS: QUETIAPINE FUMARATE 25MG TABLET PO SCH (21:12)
[2016-12-23] VITALS (91 sets, daily range): BP systolic 101–166; BP diastolic 41–87
[2016-12-23] MEDS: IPRATROPIUM/ALBUTEROL 0.5-3(2.5)MG/3ML NEB HHN SCH ×6 (00:15→20:14)
[2016-12-23] MEDS: BLOOD SUGAR DIAGNOSTIC STRIP TEST SCH ×5 (00:38→23:12)
[2016-12-23] MEDS: FENTANYL CITRATE/PF 500 MCG in SODIUM CHLORIDE 0.9% 40 ML IV PRN ×2 (01:55→13:08)
[2016-12-23] MEDS: AMIODARONE HCL 900 MG in DEXT 5% WATER 500 ML IV PRN (05:36)
[2016-12-23] MEDS: DEXT 5%/0.45% NACL 1000ML 1,000 ML IV SCH ×2 (05:40→17:15)
[2016-12-23] MEDS: PIPERACILLIN/TAZ 2.25G PREMIX 50 ML IV SCH ×3 (05:40→23:16)
[2016-12-23 05:59] LABS: HEMOGLOBIN. 9.2 g/dL (14.0-18.0); MEAN CORPUSCULAR HEMOGLOBIN 27.6 pg (28.0-32.0); MEAN CORPUSCULAR HGB CONC 32.7 g/dL (31.0-37.0); MEAN CORPUSCULAR VOLUME 84.3 fL (80.0-94.0); MEAN PLATELET VOLUME 8.6 fl (7.4-10.4); PLATELET 356 x1000/uL (130-400); RED BLOOD CELL COUNT 3.33 mill/uL (4.7-6.1); RED CELL DISTRIBUTION WIDTH 15.5 % (11.6-14.6); WHITE BLOOD COUNT 21.3 x1000/uL (4.5-11.0)
[2016-12-23] MEDS: INSULIN LISPRO 100 UNITS/ML SUBCUT SCH ×5 (06:00→23:17)
[2016-12-23 06:05] LABS: DIFFERENTIAL COMMENT 1
[2016-12-23 06:36] LABS: ALANINE AMINOTRANSFERASE < 6 IU/L (13-61); ALBUMIN 1.3 g/dL (3.4-5.0); ANION GAP 19; CALCIUM 7.4 mg/dL (8.5-10.1); CARBON DIOXIDE 21 mEq/L (21-32); CHLORIDE 105 mEq/L (98-107); INDEX HEMOLYSI 1 (1-3); INDEX ICTERIC 1 (1-4); INDEX LIPEMIC 1 (1-3); MAGNESIUM 2.8 mg/dL (1.8-2.4); PHOSPHORUS 6.2 mg/dL (2.5-4.9); UREA NITROGEN BLOOD 63 mg/dL (7-21); eGFR 18 mL/min (>60)
[2016-12-23 07:23] LABS: ANISOCYTOSIS 1+; PLATELET ESTIMATE NORMAL
[2016-12-23 07:26] LABS: BG CARBOXYHEMOGLOBIN 0.3 % (0.5-1.5); BG HCO3 ACT 20.7 mmol/L (22.0-26.0); BG METHEMOGLOBIN 0.3 % (0.0-1.5); BG OXYHEMOGLOBIN 95.4 % (94.0-97.0); BG PH 7.322 (7.350-7.450); BG PO2 89.6 mmHg (75.0-100.0); BG SAMPLE SITE RIGHT RADIAL; BG TIDAL VOLUME(mL) 500 mL; BG TOTAL HEMOGLOBIN 11.2 g/dL (12.0-18.0); BG VENT MODE VENT - A/C; BG VENT RATE 16 set
[2016-12-23] MEDS: GLIPIZIDE 5MG TABLET PO SCH ×2 (07:26→17:15)
[2016-12-23] MEDS: FAMOTIDINE 20MG TABLET PO SCH (07:58)
[2016-12-23] MEDS: LACTULOSE 20G/30ML UDC PO SCH ×2 (08:01→21:31)
[2016-12-23] MEDS: ASPIRIN 81MG TABLET PO SCH (08:01)
[2016-12-23] MEDS: ACYCLOVIR IV SCH ×2 (08:01→21:31)
[2016-12-23] MEDS: WATER IV SCH ×2 (08:01→21:31)
[2016-12-23] MEDS: DEXTROSE 5% IV SCH ×2 (08:01→21:31)
[2016-12-23] MEDS: INSULIN DETEMIR UD 100 UNITS/ML SYR SUBCUT SCH ×2 (10:08→21:32)
[2016-12-23] MEDS: ENOXAPARIN 80MG/0.8ML SYR SUBCUT SCH (10:08)
[2016-12-23] MEDS: ACETAMINOPHEN 650MG/20.3ML UDC GT PRN (11:18)
[2016-12-23] MEDS ORDERED: VANCOMYCIN 1 G PREMIX 200 ML IV SCH (12:00)
[2016-12-23] MEDS ORDERED: FENTANYL CITRATE IV PRN (21:00)
[2016-12-23] MEDS ORDERED: SODIUM CHLORIDE 0.9% IV PRN (21:00)
[2016-12-23] MEDS ORDERED: FENTANYL CITRATE/PF 1,000 MCG in SODIUM CHLORIDE 0.9% 80 ML IV PRN (21:00)
[2016-12-23] MEDS ORDERED: FENTANYL CITRATE/PF 1,000 MCG in SODIUM CHLORIDE 0.9% 100 ML IV PRN (21:05)
[2016-12-23] MEDS: FENTANYL CITRATE/PF 1,000 MCG in SODIUM CHLORIDE 0.9% 80 ML IV PRN (21:49)
[2016-12-23] MEDS: LORAZEPAM 2MG/ML CPJ IV PRN (23:30)
[2016-12-23 23:58] LABS: BG BASE EXCESS -6.7 mmol/L (-2.0-2.0); BG CARBOXYHEMOGLOBIN 0.3 % (0.5-1.5); BG FRACTION INSPIRED OXYGEN 40; BG HCO3 ACT 18.9 mmol/L (22.0-26.0); BG METHEMOGLOBIN 0.2 % (0.0-1.5); BG OXYHEMOGLOBIN 92.5 % (94.0-97.0); BG PH 7.315 (7.350-7.450); BG PO2 72.6 mmHg (75.0-100.0); BG SAMPLE SITE LEFT RADIAL; BG TIDAL VOLUME(mL) 550 mL; BG TOTAL HEMOGLOBIN 10.7 g/dL (12.0-18.0); BG VENT MODE VENT - A/C; BG VENT RATE 16 set
[2016-12-24] VITALS (95 sets, daily range): BP systolic 92–147; BP diastolic 43–85
[2016-12-24] MEDS: IPRATROPIUM/ALBUTEROL 0.5-3(2.5)MG/3ML NEB HHN SCH ×6 (00:02→20:03)
[2016-12-24] MEDS: ACETAMINOPHEN 325MG TABLET PO PRN (04:22)
[2016-12-24] MEDS: INSULIN LISPRO 100 UNITS/ML SUBCUT SCH ×4 (05:36→23:42)
[2016-12-24] MEDS: BLOOD SUGAR DIAGNOSTIC STRIP TEST SCH ×4 (05:36→23:39)
[2016-12-24 05:42] LABS: AMMONIA 71 uMol/L (<32); INDEX HEMOLYSI 1 (1-3)
[2016-12-24 05:43] LABS: HEMOGLOBIN. 9.9 g/dL (14.0-18.0); MEAN CORPUSCULAR HEMOGLOBIN 27.3 pg (28.0-32.0); MEAN CORPUSCULAR HGB CONC 31.9 g/dL (31.0-37.0); MEAN CORPUSCULAR VOLUME 85.3 fL (80.0-94.0); PLATELET 457 x1000/uL (130-400); RED BLOOD CELL COUNT 3.63 mill/uL (4.7-6.1); RED CELL DISTRIBUTION WIDTH 15.4 % (11.6-14.6); WHITE BLOOD COUNT 27.8 x1000/uL (4.5-11.0)
[2016-12-24 05:47] LABS: DIFFERENTIAL COMMENT 1
[2016-12-24] MEDS: PIPERACILLIN/TAZ 2.25G PREMIX 50 ML IV SCH ×3 (06:31→22:20)
[2016-12-24] MEDS: DEXT 5%/0.45% NACL 1000ML 1,000 ML IV SCH ×3 (06:35→23:34)
[2016-12-24 06:46] LABS: NUCLEATED RED BLOOD CELLS 1 /100 WBC; PLATELET ESTIMATE INCREASED
[2016-12-24 07:03] LABS: ALANINE AMINOTRANSFERASE 7 IU/L (13-61); ALBUMIN 1.5 g/dL (3.4-5.0); ANION GAP 17; CARBON DIOXIDE 22 mEq/L (21-32); CHLORIDE 105 mEq/L (98-107); INDEX HEMOLYSI 1 (1-3); INDEX ICTERIC 1 (1-4); INDEX LIPEMIC 1 (1-3); MAGNESIUM 3.2 mg/dL (1.8-2.4); UREA NITROGEN BLOOD 69 mg/dL (7-21); eGFR 16 mL/min (>60)
[2016-12-24 07:08] LABS: PHOSPHORUS 8.6 mg/dL (2.5-4.9)
[2016-12-24] MEDS: GLIPIZIDE 5MG TABLET PO SCH ×3 (07:50→18:26)
[2016-12-24] MEDS: FENTANYL CITRATE/PF 1,000 MCG in SODIUM CHLORIDE 0.9% 80 ML IV PRN (08:28)
[2016-12-24] MEDS: ACYCLOVIR IV SCH ×2 (08:28→21:33)
[2016-12-24] MEDS: WATER IV SCH ×2 (08:28→21:33)
[2016-12-24] MEDS: DEXTROSE 5% IV SCH ×2 (08:28→21:33)
[2016-12-24] MEDS: LACTULOSE 20G/30ML UDC PO SCH ×2 (08:29→21:33)
[2016-12-24] MEDS: FAMOTIDINE 20MG TABLET PO SCH (08:29)
[2016-12-24] MEDS: ASPIRIN 81MG TABLET PO SCH (08:29)
[2016-12-24 08:53] LABS: BG BASE EXCESS -7.4 mmol/L (-2.0-2.0); BG CARBOXYHEMOGLOBIN 0.3 % (0.5-1.5); BG DEOXYHEMOGLOBIN 1.3 % (0.0-5.0); BG FRACTION INSPIRED OXYGEN 60; BG HCO3 ACT 18.8 mmol/L (22.0-26.0); BG METHEMOGLOBIN 0.4 % (0.0-1.5); BG OXYGEN SATURATION 98.7 % (92.0-98.5); BG PCO2 40.6 mmHg (35.0-45.0); BG PH 7.283 (7.350-7.450); BG PO2 149.4 mmHg (75.0-100.0); BG SAMPLE SITE RIGHT RADIAL; BG TIDAL VOLUME(mL) 550 mL; BG TOTAL HEMOGLOBIN 10.6 g/dL (12.0-18.0); BG VENT MODE VENT - A/C; BG VENT RATE 16 set
[2016-12-24] MEDS: INSULIN DETEMIR UD 100 UNITS/ML SYR SUBCUT SCH ×2 (10:59→22:21)
[2016-12-24] MEDS: ENOXAPARIN 80MG/0.8ML SYR SUBCUT SCH (12:22)
[2016-12-24] MEDS: MICAFUNGIN 100 MG in SODIUM CHLORIDE 0.9% 100 ML IV SCH (14:30)
[2016-12-24] MEDS: AMIODARONE HCL 900 MG in DEXT 5% WATER 500 ML IV PRN (14:33)
[2016-12-25] VITALS (79 sets, daily range): BP systolic 103–146; BP diastolic 42–75
[2016-12-25] MEDS: IPRATROPIUM/ALBUTEROL 0.5-3(2.5)MG/3ML NEB HHN SCH ×7 (00:09→23:50)
[2016-12-25] MEDS: LORAZEPAM 2MG/ML CPJ IV PRN ×2 (02:01→06:39)
[2016-12-25] MEDS: BLOOD SUGAR DIAGNOSTIC STRIP TEST SCH ×3 (05:30→18:06)
[2016-12-25 05:31] LABS: HEMATOCRIT. 29.7 % (42.0-52.0); HEMOGLOBIN. 9.6 g/dL (14.0-18.0); MEAN CORPUSCULAR HEMOGLOBIN 27.9 pg (28.0-32.0); MEAN CORPUSCULAR HGB CONC 32.5 g/dL (31.0-37.0); MEAN CORPUSCULAR VOLUME 85.6 fL (80.0-94.0); MEAN PLATELET VOLUME 8.1 fl (7.4-10.4); PLATELET 476 x1000/uL (130-400); RED BLOOD CELL COUNT 3.46 mill/uL (4.7-6.1); RED CELL DISTRIBUTION WIDTH 15.5 % (11.6-14.6); WHITE BLOOD COUNT 26.2 x1000/uL (4.5-11.0)
[2016-12-25 05:32] LABS: DIFFERENTIAL COMMENT 1
[2016-12-25] MEDS: INSULIN LISPRO 100 UNITS/ML SUBCUT SCH ×3 (05:37→18:00)
[2016-12-25] MEDS: PIPERACILLIN/TAZ 2.25G PREMIX 50 ML IV SCH ×3 (06:01→23:41)
[2016-12-25 06:08] LABS: ALANINE AMINOTRANSFERASE 7 IU/L (13-61); ANION GAP 20; CARBON DIOXIDE 19 mEq/L (21-32); CHLORIDE 103 mEq/L (98-107); INDEX HEMOLYSI 1 (1-3); INDEX ICTERIC 1 (1-4); INDEX LIPEMIC 1 (1-3); MAGNESIUM 3.4 mg/dL (1.8-2.4); eGFR 14 mL/min (>60)
[2016-12-25 06:44] LABS: CALCIUM 7.6 mg/dL (8.5-10.1)
[2016-12-25 07:02] LABS: ALBUMIN 1.4 g/dL (3.4-5.0)
[2016-12-25 07:14] LABS: BG BASE EXCESS -10.7 mmol/L (-2.0-2.0); BG CARBOXYHEMOGLOBIN 0.3 % (0.5-1.5); BG DEOXYHEMOGLOBIN 17.4 % (0.0-5.0); BG FRACTION INSPIRED OXYGEN 50; BG HCO3 ACT 17.3 mmol/L (22.0-26.0); BG METHEMOGLOBIN 0.6 % (0.0-1.5); BG OXYGEN SATURATION 82.4 % (92.0-98.5); BG OXYHEMOGLOBIN 81.7 % (94.0-97.0); BG PCO2 47.4 mmHg (35.0-45.0); BG PH 7.181 (7.350-7.450); BG PO2 58.2 mmHg (75.0-100.0); BG SAMPLE SITE RIGHT BRACHIAL; BG TIDAL VOLUME(mL) 550 mL; BG TOTAL HEMOGLOBIN 11.7 g/dL (12.0-18.0); BG VENT MODE VENT - A/C; BG VENT RATE 16 set
[2016-12-25 07:22] LABS: UREA NITROGEN BLOOD 80 mg/dL (7-21)
[2016-12-25 07:24] LABS: PHOSPHORUS 9.1 mg/dL (2.5-4.9)
[2016-12-25 08:35] LABS: BG BASE EXCESS -9.5 mmol/L (-2.0-2.0); BG CARBOXYHEMOGLOBIN 0.3 % (0.5-1.5); BG DEOXYHEMOGLOBIN 6.2 % (0.0-5.0); BG FRACTION INSPIRED OXYGEN 50; BG HCO3 ACT 18.6 mmol/L (22.0-26.0); BG METHEMOGLOBIN 0.2 % (0.0-1.5); BG OXYGEN SATURATION 93.8 % (92.0-98.5); BG OXYHEMOGLOBIN 93.3 % (94.0-97.0); BG PCO2 49.8 mmHg (35.0-45.0); BG PH 7.189 (7.350-7.450); BG PO2 84.6 mmHg (75.0-100.0); BG SAMPLE SITE RIGHT RADIAL; BG TIDAL VOLUME(mL) 550 mL; BG TOTAL HEMOGLOBIN 11.6 g/dL (12.0-18.0); BG VENT MODE VENT - A/C; BG VENT RATE 16 set
[2016-12-25] MEDS ORDERED: SODIUM BICARBONATE 8.4% 1 MEQ/ML 50ML SYR IV NR (08:45)
[2016-12-25 09:06] LABS: NUCLEATED RED BLOOD CELLS 1 /100 WBC
[2016-12-25 09:07] LABS: ANISOCYTOSIS 1+; PLATELET ESTIMATE INCREASED
[2016-12-25] MEDS: FAMOTIDINE 20MG TABLET PO SCH (09:37)
[2016-12-25] MEDS: GLIPIZIDE 5MG TABLET PO SCH ×2 (09:39→18:34)
[2016-12-25] MEDS: LACTULOSE 20G/30ML UDC PO SCH ×2 (09:39→21:14)
[2016-12-25] MEDS: ASPIRIN 81MG TABLET PO SCH (09:39)
[2016-12-25] MEDS: INSULIN DETEMIR UD 100 UNITS/ML SYR SUBCUT SCH ×2 (11:27→21:15)
[2016-12-25] MEDS: ENOXAPARIN 80MG/0.8ML SYR SUBCUT SCH (11:28)
[2016-12-25] MEDS: MICAFUNGIN 100 MG in SODIUM CHLORIDE 0.9% 100 ML IV SCH (14:12)
[2016-12-25] MEDS: DEXT 5%/0.45% NACL 1000ML 1,000 ML IV SCH (14:12)
[2016-12-25] MEDS ORDERED: VANCOMYCIN 1 G PREMIX 200 ML IV NR (15:00)
[2016-12-25] MEDS: AMIODARONE HCL 900 MG in DEXT 5% WATER 500 ML IV PRN (22:00)
[2016-12-26] VITALS (62 sets, daily range): BP systolic 50–167; BP diastolic 23–97
[2016-12-26] MEDS: BLOOD SUGAR DIAGNOSTIC STRIP TEST SCH ×4 (00:40→17:39)
[2016-12-26] MEDS: IPRATROPIUM/ALBUTEROL 0.5-3(2.5)MG/3ML NEB HHN SCH ×4 (03:38→20:21)
[2016-12-26 05:32] LABS: HEMATOCRIT. 32.4 % (42.0-52.0); HEMOGLOBIN. 10.3 g/dL (14.0-18.0); MEAN CORPUSCULAR HEMOGLOBIN 27.6 pg (28.0-32.0); MEAN CORPUSCULAR HGB CONC 31.8 g/dL (31.0-37.0); MEAN CORPUSCULAR VOLUME 86.7 fL (80.0-94.0); MEAN PLATELET VOLUME 8.1 fl (7.4-10.4); PLATELET 588 x1000/uL (130-400); RED BLOOD CELL COUNT 3.74 mill/uL (4.7-6.1); RED CELL DISTRIBUTION WIDTH 15.5 % (11.6-14.6)
[2016-12-26 05:37] LABS: DIFFERENTIAL COMMENT 1
[2016-12-26] MEDS: INSULIN LISPRO 100 UNITS/ML SUBCUT SCH ×4 (05:45→17:52)
[2016-12-26] MEDS: DEXT 5%/0.45% NACL 1000ML 1,000 ML IV SCH ×2 (05:49→17:52)
[2016-12-26 06:03] LABS: ALANINE AMINOTRANSFERASE 63 IU/L (13-61); ALBUMIN 1.5 g/dL (3.4-5.0); ANION GAP 24; CALCIUM 8.2 mg/dL (8.5-10.1); CARBON DIOXIDE 17 mEq/L (21-32); CHLORIDE 100 mEq/L (98-107); INDEX HEMOLYSI 1 (1-3); INDEX ICTERIC 1 (1-4); INDEX LIPEMIC 1 (1-3); MAGNESIUM 3.7 mg/dL (1.8-2.4); eGFR 11 mL/min (>60)
[2016-12-26] MEDS: PIPERACILLIN/TAZ 2.25G PREMIX 50 ML IV SCH ×2 (06:10→14:50)
[2016-12-26 06:39] LABS: UREA NITROGEN BLOOD 91 mg/dL (7-21)
[2016-12-26 06:40] LABS: PHOSPHORUS 10.9 mg/dL (2.5-4.9)
[2016-12-26] MEDS: GLIPIZIDE 5MG TABLET PO SCH ×2 (07:50→17:39)
[2016-12-26 07:52] LABS: ANISOCYTOSIS 1+; PLATELET ESTIMATE INCREASED
[2016-12-26] MEDS ORDERED: SODIUM POLYSTYRENE SULFONATE 15 G/60 ML BOT PO NR (08:10)
[2016-12-26] MEDS ORDERED: SORBITOL 70% SOLN 30ML PO ONE (08:15)
[2016-12-26] MEDS: ASPIRIN 81MG TABLET PO SCH (08:25)
[2016-12-26] MEDS: LACTULOSE 20G/30ML UDC PO SCH ×2 (08:25→21:51)
[2016-12-26] MEDS: FAMOTIDINE 20MG TABLET PO SCH (08:25)
[2016-12-26] MEDS: ENOXAPARIN 80MG/0.8ML SYR SUBCUT SCH (10:18)
[2016-12-26] MEDS: INSULIN DETEMIR UD 100 UNITS/ML SYR SUBCUT SCH ×2 (10:18→21:52)
[2016-12-26] MEDS: MICAFUNGIN 100 MG in SODIUM CHLORIDE 0.9% 100 ML IV SCH (12:27)
[2016-12-26] MEDS ORDERED: SODIUM BICARBONATE 8.4% 1 MEQ/ML 50ML SYR IV NR (14:30)
[2016-12-26] MEDS ORDERED: DEXTROSE 50% WATER 50ML SYRINGE IV NR (14:30)
[2016-12-26] MEDS ORDERED: INSULIN REGULAR (HUMULIN R) 300UNITS/3ML IV NR (15:30)
[2016-12-26 19:44] LABS: INR 1.9; PROTHROMBIN TIME 19.5 sec
[2016-12-26 22:18] LABS: MEAN CORPUSCULAR HGB CONC 30.5 g/dL (31.0-37.0); MEAN CORPUSCULAR VOLUME 88.5 fL (80.0-94.0); MEAN PLATELET VOLUME 8.2 fl (7.4-10.4); PLATELET 414 x1000/uL (130-400); RED BLOOD CELL COUNT 1.49 mill/uL (4.7-6.1); RED CELL DISTRIBUTION WIDTH 15.1 % (11.6-14.6); WHITE BLOOD COUNT 25.7 x1000/uL (4.5-11.0)
[2016-12-26 22:23] LABS: DIFFERENTIAL COMMENT 1; HEMATOCRIT. 13.2 % (42.0-52.0)
[2016-12-26 23:00] LABS: NUCLEATED RED BLOOD CELLS 3 /100 WBC; PLATELET ESTIMATE SLIGHTLY INCREASED
[2016-12-26 23:01] LABS: ANISOCYTOSIS 1+
[2016-12-26 23:02] LABS: HYPOCHROMASIA 1+
== END 2016-12-27 03:22 | disposition expired | DRG 710 ==
LOC: ER 16:10 → CVICU 19:39 → 3WST 12-18 19:00 → CVICU 12-21 19:40
PROVIDERS: ADMIT Family Medicine; ATTEND Family Medicine
PROC: 5A09357 Assistance with Respiratory Ventilation, Less than 24 Consecutive Hours, Continuous Positive Airway Pressure (ICD-10-PCS; 2016-12-20)
PROC: 5A1955Z Respiratory Ventilation, Greater than 96 Consecutive Hours (ICD-10-PCS; principal; 2016-12-22)
PROC: 02PY33Z Removal of Infusion Device from Great Vessel, Percutaneous Approach (ICD-10-PCS; 2016-12-22)
PROC: 0BH17EZ Insertion of Endotracheal Airway into Trachea, Via Natural or Artificial Opening (ICD-10-PCS; 2016-12-22)
PROC: 05HM33Z Insertion of Infusion Device into Right Internal Jugular Vein, Percutaneous Approach (ICD-10-PCS; 2016-12-22)
PROC: B543ZZA Ultrasonography of Right Jugular Veins, Guidance (ICD-10-PCS; 2016-12-22)
DX: A41.2 Sepsis due to unspecified staphylococcus (principal); I21.4 Non-ST elevation (NSTEMI) myocardial infarction; I63.9 Cerebral infarction, unspecified; J96.01 Acute respiratory failure with hypoxia; I46.9 Cardiac arrest, cause unspecified; G92 Toxic encephalopathy; N17.0 Acute kidney failure with tubular necrosis; J69.0 Pneumonitis due to inhalation of food and vomit; E13.10 Other specified diabetes mellitus with ketoacidosis without coma; E87.1 Hypo-osmolality and hyponatremia; B02.9 Zoster without complications; I50.31 Acute diastolic (congestive) heart failure; R65.20 Severe sepsis without septic shock; E43 Unspecified severe protein-calorie malnutrition; E78.5 Hyperlipidemia, unspecified; F17.210 Nicotine dependence, cigarettes, uncomplicated; E87.6 Hypokalemia; D63.8 Anemia in other chronic diseases classified elsewhere; F10.21 Alcohol dependence, in remission; E83.39 Other disorders of phosphorus metabolism; N39.0 Urinary tract infection, site not specified; Y90.7 Blood alcohol level of 200-239 mg/100 ml; E78.00 Pure hypercholesterolemia, unspecified; I11.0 Hypertensive heart disease with heart failure; B95.61 Methicillin susceptible Staphylococcus aureus infection as the cause of diseases classified elsewhere; I48.0 Paroxysmal atrial fibrillation; E87.5 Hyperkalemia; Z51.5 Encounter for palliative care; Z66 Do not resuscitate; Z68.25 Body mass index [BMI] 25.0-25.9, adult
CPT/HCPCS: 36415; 36569; 36584; 36600; 51702; 70450; 70551; 71010; 74000; 76700; 76937; 78580; 78582; 80048; 80053; 80061; 80202; 80305; 81001; 82010; 82140; 82150; 82375; 82550; 82553; 82570; 82805; 82962; 82977; 83605; 83690; 83735; 83880; 84100; 84132; 84145; 84156; 84300; 84484; 85025; 85610; 87040; 87070; 87077; 87086; 87107; 87305; 93005; 93306; 93880; 93970; 94002; 94003; 94640; 94660; 96361; 96365; 97112; 97163; 97530; 99291; A6261; A9558; C1725; C9113; G0482; J0133; J0171; J0282; J0690; J1650; J1815; J1940; J2060; J2248; J2250; J2270; J2405; J2543; J3010; J3370; J3480; J3490; J7030; J7040; J7050; J7060; J7608; J7620; A4315